=== PATIENT | male | born 1945 | race Caucasian/White ===

== ENCOUNTER → 2016-10-20 | Outpatient (CLI) | payer MEDICARE, OTHER ==
--- NOTE | 2016-10-20 12:00 | CT ---
EXAMINATION TYPE: CT ChestAbdPelvis w con DATE OF EXAM: 10/20/2016 11:47 AM COMPARISON: 04/05/2016 HISTORY: lymphoma CT DLP: 1140.8 mGycm CONTRAST: CT scan of the chest, abdomen and pelvis is performed with Oral Contrast and with IV Contrast, patien t injected with 100 ml mL of Omnipaque 300. CT Chest: LUNGS: The lungs are clear and free of infiltrate or atelectasis. No pulmonary nodule or mass is det ected. No pleural effusion or CT evidence of interstitial lung disease. MEDIASTINUM: Thoracic aorta is of normal caliber. The heart is not enlarged. No evidence for media stinal mass or adenopathy. HILAR STRUCTURES: No evidence for mass. No hilar adenopathy is appreciated. OTHER: No visualized axillary or supraclavicular adenopathy. CONTRAST CT ABDOMEN AND PELVIS FINDINGS: LIVER/GB: No space occupying hepatic lesion. Biliary tree is of normal caliber. Evidence of hepat ic steatosis. Cholecystectomy clips are in place. PANCREAS: No inflammation. No distinct mass. SPLEEN: No splenic enlargement. No lesion seen. ADRENALS: No nodule. No thickening. KIDNEYS/BLADDER: No hydronephrosis. No nephrolithiasis. No disctinct renal mass. BOWEL: Small sliding-type hiatal hernia detected. Normal appendix. Normal bowel caliber. No inflamm ation. GENITAL ORGANS: Mild prostate enlargement. LYMPH NODES: No greater than 1cm abdominal or pelvic lymph nodes are appreciated. AORTA: No significant abnormality. OSSEOUS STRUCTURES: No significant abnormality is seen. OTHER: No significant additional abnormality is seen. IMPRESSION: 1. No evidence for adenopathy within the chest abdomen or pelvis. 2. Hepatic steatosis. 3. Small sliding-type hiatal hernia.
== END | disposition home or self-care (01) ==
LOC: RADCTMAIN 11:14
PROVIDERS: ATTEND Internal Medicine Hematology & Oncology
DX: C85.90 Non-Hodgkin lymphoma, unspecified, unspecified site (principal); K76.0 Fatty (change of) liver, not elsewhere classified; K44.9 Diaphragmatic hernia without obstruction or gangrene
CPT/HCPCS: 71260; 74177; Q9967

== ENCOUNTER → 2016-11-24 | Outpatient (CLI) | payer MEDICARE, OTHER ==
--- NOTE | 2016-11-24 10:33 | ECHOS ---
DATE OF SERVICE: 11/24/2016 AGE: 71Y SEX: M HT: 59 WT: 195 lbs. Protocol Luke: X Others: Stress Echo Stage: III Dur. of Exercise: 8 minutes *Heart Rate Blood Pressure *Rest: 72 Rest: 160/72 * *Max. Achieved: 125 Maximum BP: 213/56 85% PMHR: 127 100% PMHR: 149 *METS: 9 INDICATIONS: Coronary artery disease. MEDICATIONS: Ziac, Verapamil, lisinopril, Flomax. Baseline EKG shows sinus rhythm, normal axis, normal intervals. Patient exercised on Luke protocol for a total of 8 minutes, achieving 9 METs, 84% of predicted maximal heart rate without chest pain or diagnostic ST segment depression. Baseline echo shows normal left ventricular size, wall motion and systolic function. Postexercise, there is normal hyperdynamic response of all segments of myocardium noted. CONCLUSION: 1. Good exercise tolerance. 2. Negative stress test by EKG criteria. 3. Negative stress echo.
== END | disposition home or self-care (01) ==
LOC: RADNMMAIN 09:16
PROVIDERS: ATTEND Internal Medicine Geriatric Medicine
DX: I25.10 Atherosclerotic heart disease of native coronary artery without angina pectoris (principal)
CPT/HCPCS: 93017; 93350

== ENCOUNTER → 2017-05-08 | Outpatient (CLI) | payer MEDICARE, OTHER ==
[2017-05-08 09:44] LABS: Blood Urea Nitrogen 14 mg/dL (9-20); Non-African American GFR(MDRD) >60 (>60 ml/min/1.73 sqM)
--- NOTE | 2017-05-08 12:52 | CT ---
EXAMINATION TYPE: CT ChestAbdPelvis w con DATE OF EXAM: 05/08/2017 INDICATION: Lymphoma COMPARISON: 10/20/2016 CT DLP: 2014 mGycm CONTRAST: Performed with Oral Contrast and with IV Contrast, patient injected with 100 ml mL of Omnipaque 300. TECHNIQUE: Axial images at 5 mm thick sections. Reconstructed images in the coronal plane. Delayed images through the kidneys. FINDINGS: CT CHEST: Portion of the thyroid visualized is normal. No suspicious lung nodules or focal infiltrates are present. No enlarged mediastinal or hilar adenopathy is evident. The ascending aorta diameter at the level of the main pulmonary artery is 3.4 cm. The main pulmonary artery diameter at the bifurcation is 2.4 cm. Coronary artery calcification is noted. Small hiatal hernia may be present. CT ABDOMEN: Liver: Normal Spleen: Normal Pancreas: Normal Adrenal glands: The adrenal glands are normal. Gallbladder: Surgically absent. Kidneys: No masses are evident. No hydronephrosis is present. No cysts are present. Delayed images were obtained through the kidneys, which remain unremarkable. Aorta: Vascular calcification is within the aorta. Couple of shotty lymph nodes are adjacent to the proximal abdominal aorta. Inferior vena cava: Normal. CT PELVIS: Loops of bowel within the abdomen and pelvis are normal. There are loops of bowel which are incom pletely distended or lack oral contrast limiting their evaluation. Appendix: Normal as visualized. Urinary bladder: Normal. Genitourinary structures: Prostate is prominent. Osseous structures: Degenerative disc changes are present L5-S1. No suspicious lytic or sclerotic les ions are evident. IMPRESSIONS: 1. No suspicious lymphadenopathy is evident. There are a few scattered small lymph nodes present.
== END | disposition home or self-care (01) ==
LOC: RADCTMAIN 08:54
PROVIDERS: ATTEND Internal Medicine Hematology & Oncology
DX: C85.98 Non-Hodgkin lymphoma, unspecified, lymph nodes of multiple sites (principal); R59.0 Localized enlarged lymph nodes
CPT/HCPCS: 82565; 84520; 71260; 74177; Q9967

== ENCOUNTER → 2017-10-29 | Outpatient (CLI) | payer MEDICARE ==
[2017-10-29 13:01] LABS: Blood Urea Nitrogen 18 mg/dL (9-20)
--- NOTE | 2017-10-29 21:47 | CT ---
EXAMINATION TYPE: CT ChestAbdPelvis w con DATE OF EXAM: 10/29/2017 INDICATION: Follow-up lymphoma. COMPARISON: 05/08/2017 CT DLP: 1894 mGycm CONTRAST: Performed with Oral Contrast and with IV Contrast, patient injected with 100 mL of Omnipaque 350. TECHNIQUE: Axial images at 5 mm thick sections. Reconstructed images in the coronal plane. Delayed images through the kidneys. FINDINGS: CT CHEST: Portion of the thyroid visualized is normal. Small area of pneumonitis in the anterior medial right middle lobe, this was present previously. No enlarged mediastinal or hilar adenopathy is evident. Couple small shotty lymph nodes are in the pr etracheal space. Axillary regions are normal. Supraclavicular regions appear within normal limits. The ascending aorta diameter at the level of the main pulmonary artery is 3.2 cm. The main pulmonary artery diameter at the bifurcation is 2.[address] ABDOMEN: Liver: Normal Spleen: Normal a small splenule is anterior to the spleen Pancreas: Normal Adrenal glands: The adrenal glands are normal. Gallbladder: Surgically absent Kidneys: No masses are evident. No hydronephrosis is present. No cysts are present. Delayed images were obtained through the kidneys, which remain unremarkable. There is a retrocaval right renal mitzy ry Aorta: Vascular calcification is within the aorta. No suspicious periaortic adenopathy is evident. N o retrocaval adenopathy is evident. Inferior vena cava: Normal. CT PELVIS: No suspicious inguinal or pelvic adenopathy is evident. Loops of bowel within the abdomen and pelvis are normal. There are loops of bowel which are incom pletely distended or lack oral contrast limiting their evaluation. Appendix: Normal as visualized. Urinary bladder: Normal. Genitourinary structures: Prostate is prominent. Osseous structures: No suspicious lytic or sclerotic lesions. Degenerative disc changes are within th e lumbar spine. Some facet changes are present. IMPRESSIONS: 1. No suspicious enlarged adenopathy within the chest abdomen or pelvis to suggest metastatic or recu rrent lymphoma.
== END | disposition home or self-care (01) ==
LOC: RADCTMAIN 12:06
PROVIDERS: ATTEND Internal Medicine Hematology & Oncology
DX: C85.98 Non-Hodgkin lymphoma, unspecified, lymph nodes of multiple sites (principal)
CPT/HCPCS: 82565; 84520; 71260; 74177; 36415; Q9967

== ENCOUNTER → 2018-04-30 | Outpatient (CLI) | payer MEDICARE ==
[2018-04-30 12:05] LABS: Blood Urea Nitrogen 22 mg/dL (9-20)
--- NOTE | 2018-04-30 13:30 | CT ---
EXAMINATION TYPE: CT ChestAbdPelvis w con DATE OF EXAM: 04/30/2018 COMPARISON: CT chest abdomen pelvis October 29, 2017 and older studies. HISTORY: Follow up Lymphoma CT DLP: 1484 mGycm. Automated Exposure Control for Dose Reduction was Utilized. CONTRAST: CT scan of the thorax, abdomen and pelvis is performed with oral and with IV Contrast, patient inject ed with 100 mL of Isovue 300. FINDINGS: LUNGS: Focal scarring anteriorly medially right midlung axial image 28 is redemonstrated. No new edwar picious parenchymal nodule or mass is present. There is no pleural effusion or pneumothorax seen bila terally. The tracheobronchial tree is patent. MEDIASTINUM: There are no new greater than 1 cm hilar or mediastinal lymph nodes. Trace pericardial e ffusion is seen anteriorly axial image 43 not significantly changed from prior. Cardiomegaly is rede monstrated. Coronary artery calcification and/or stents are again seen. OTHER: No additional significant abnormality is seen. LIVER/GB: Cholecystectomy clips are redemonstrated. PANCREAS: No significant abnormality is seen. SPLEEN: A few tiny splenule surrounding spleen are redemonstrated. Spleen remains normal in size jairo lar to most recent CT. ADRENALS: No significant abnormality is seen. KIDNEYS: No significant abnormality is seen. BOWEL: The oral contrast does not reach terminal ileal level. No suspicious small or large bowel dila tation is noted. GENITAL ORGANS: Heterogeneous enlarged prostate gland bulging on bladder base consistent with BPH is noted. LYMPH NODES: No greater than 1cm abdominal or pelvic lymph nodes are appreciated. Slightly prominent but subcentimeter upper to mid abdominal posterior lymph nodes are stable OSSEOUS STRUCTURES: Multilevel spurring in the thoracolumbar spine is again seen. Disc space narrowin g lumbosacral junction is redemonstrated. Prominent spur effacing anterior thecal sac L2-L3 and L5-S1 levels is again seen. OTHER: Surgical clips right groin region are redemonstrated. Mild to moderate plaque in the abdominal aorta extending into branch vessels is again seen. IMPRESSION: No new suspicious adenopathy is identified above or below diaphragm to suggest lymphoma r ecurrence as originally diagnosed beginning of 2013.
== END | disposition home or self-care (01) ==
LOC: RADCTMAIN 11:28
PROVIDERS: ATTEND Internal Medicine Hematology & Oncology
DX: C85.98 Non-Hodgkin lymphoma, unspecified, lymph nodes of multiple sites (principal)
CPT/HCPCS: 82565; 84520; 71260; 74177; 36415; Q9967

== ENCOUNTER → 2018-06-19 | Outpatient (CLI) | payer MEDICARE ==
--- NOTE | 2018-06-19 16:14 | US ---
EXAMINATION TYPE: US carotid duplex BILAT DATE OF EXAM: 06/19/2018 COMPARISON: NONE CLINICAL HISTORY: I65.23. HTN controlled with meds, high cholesterol controlled with meds. No hx of TIA or stroke. EXAM MEASUREMENTS: RIGHT: Peak Systolic Velocity (PSV) cm/sec ----- Right CCA: 86.4 ----- Right ICA: 84.2 ----- Right ECA: 105.6 ICA/CCA ratio: 1.0 RIGHT: End Diastole cm/sec ----- Right CCA: 12.8 ----- Right ICA: 18.2 ----- Right ECA: 11.1 LEFT: Peak Systolic Velocity (PSV) cm/sec ----- Left CCA: 87.5 ----- Left ICA: 82.0 ----- Left ECA: 121.1 ICA/CCA ratio: 0.9 LEFT: End Diastole cm/sec ----- Left CCA: 17.1 ----- Left ICA: 25.9 ----- Left ECA: 15.0 VERTEBRALS (direction of flow): Right Vertebral: Antegrade Left Vertebral: Antegrade Rhythm: Normal Bilateral wall thickening. Plaque in bilateral bulbs. No elevated velocities or significant stenosi s. IMPRESSION: 1. Intimal thickening with some mild plaquing. Significant flow-limiting stenosis is not evident by v elociaman. Criteria for Assigning % of Stenosis / Diameter reduction (Estimation based on the indirect measurements of the internal carotid artery velocities (ICA PSV). 1. Normal (no stenosis)=ICA PSV < 125 cm/s: ratio < 2.0: ICA EDV<40 cm/s. 2. Less than 50% stenosis=ICA PSV < 125 cm/s: ratio < 2.0: ICA EDV<40 cm/s. 3. 50 to 69% stenosis=ICA PSV of 125 to 230 cm/s: ration 2.0 ? 4.0: ICA EDV 40-100 cm/s. 4. Greater than 70% stenosis to near occlusion= ICA PSV > 230 cm/s: ratio > 4.0: ICA EDV > 100 cm/s. 5. Near occlusion= ICA PSV velocities may be low or undetectable: variable ratio and ICA EDV. 6. Total occlusion=unable to detect flow.
--- NOTE | 2018-06-19 17:31 | ECHOF ---
Referral Reason:I51.7 Heart Hypertrophy; I65.23 Occlusion/stenosis MEASUREMENTS -------- HEIGHT: 175.3 cm WEIGHT: 81.6 kg BP: RVIDd: 3.7 cm (< 3.3) IVSd: 1.3 cm (0.6 - 1.1) LVIDd: 3.7 cm (3.9 - 5.3) LVPWd: 1.2 cm (0.6 - 1.1) IVSs: 1.5 cm LVIDs: 2.4 cm LVPWs: 1.5 cm LAESV Index (A-L): 17.08 ml/m Ao Diam: 2.9 cm (2.0 - 3.7) AV Cusp: 1.6 cm (1.5 - 2.6) LA Diam: 2.7 cm (2.7 - 3.8) MV EXCURSION: 12.495 mm (> 18.000) MV EF SLOPE: 26 mm/s (70 - 150) EPSS: 0.7 cm MV E Carlos: 0.58 m/s MV DecT: 319 ms MV A Carlos: 0.69 m/s MV E/A Ratio: 0.84 RAP: 5.00 mmHg RVSP: 19.22 mmHg FINDINGS -------- Sinus rhythm. This was a technically adequate study. The left ventricular size is normal. There is mild concentric left ventricular hypertrophy. Overa ll left ventricular systolic function is normal with, an EF between 55 - 60 %. The right ventricle is normal in size and function. Normal LA size by volume 22+/-6 ml/m2. The right atrium is normal in size. There is mild aortic valve sclerosis. There is no evidence of aortic regurgitation. There is no e vidence of aortic stenosis. Mild mitral annular calcification present. Mild mitral regurgitation is present. Trace tricuspid regurgitation present. Right ventricular systolic pressure is normal at < 35 mmHg. There is no evidence of pulmonary hypertension. Trace/mild (physiologic) pulmonic regurgitation. The aortic root size is normal. Normal inferior vena cava with normal inspiratory collapse consistent with estimated right atrial pre ssure of 5 mmHg. There is no pericardial effusion. CONCLUSIONS -------- 1. Sinus rhythm. 2. This was a technically adequate study. 3. The left ventricular size is normal. 4. There is mild concentric left ventricular hypertrophy. 5. Overall left ventricular systolic function is normal with, an EF between 55 - 60 %. 6. Normal LA size by volume 22+/-6 ml/m2. 7. There is mild aortic valve sclerosis. 8. Mild mitral annular calcification present. 9. Mild mitral regurgitation is present. 10. Trace tricuspid regurgitation present. 11. Right ventricular systolic pressure is normal at < 35 mmHg. 12. Trace/mild (physiologic) pulmonic regurgitation. 13. The aortic root size is normal. 14. There is no pericardial effusion. CLINICAL DIRECTOR: Nakul Reyes RDCS
== END | disposition home or self-care (01) ==
LOC: RADECHMAIN 14:50
PROVIDERS: ATTEND Internal Medicine Geriatric Medicine
DX: I08.0 Rheumatic disorders of both mitral and aortic valves (principal); I65.23 Occlusion and stenosis of bilateral carotid arteries
CPT/HCPCS: 93306; 93880

== ENCOUNTER → 2018-10-29 | Outpatient (CLI) | payer MEDICARE ==
[2018-10-29 08:29] LABS: Blood Urea Nitrogen 18 mg/dL (9-20)
--- NOTE | 2018-10-29 11:05 | CT ---
EXAMINATION TYPE: CT ChestAbdPelvis w con DATE OF EXAM: 10/29/2018 COMPARISON: CT chest abdomen and pelvis April 30, 2018 and older studies back through 2013. HISTORY: Non-Hodgkins lymphoma CT DLP: 1620 mGycm. Automated Exposure Control for Dose Reduction was Utilized. CONTRAST: CT scan of the thorax, abdomen and pelvis is performed with IV Contrast, patient injected with 100 mL of Isovue 300. FINDINGS: LUNGS: Focal linear scarring right midlung anteriorly axial image 29 is redemonstrated. No new suspi cious consolidation or groundglass opacity is seen. No new suspicious pulmonary nodules or masses are identified. There is no pleural effusion or pneumothorax seen. The tracheobronchial tree is patent. MEDIASTINUM: There are no greater than 1 cm hilar or mediastinal lymph nodes on current study. Tiny p ericardial effusion is stable anterior inferior aspect near axial image 46. No cardiomegaly is prese nt. Coronary artery calcification and/or probable stents are redemonstrated . No left-sided supraclav icular adenopathy is present. OTHER: No suspicious new axillary adenopathy is seen. LIVER/GB: Cholecystectomy clips are redemonstrated. PANCREAS: No significant abnormality is seen. SPLEEN: Spleen remains normal in size significantly improved from initial study. Tiny splenule anteri or to the spleen is redemonstrated ADRENALS: No significant abnormality is seen. KIDNEYS: Bladder wall remains mildly thickened, presumed outlet obstruction related to BPH. BOWEL: Oral contrast reaches level of the rectum. There is no suspicious small or large bowel dilatat ion. Moderate to severe multilevel spurring in the thoracolumbar spine is present. There is moderate to severe disc space narrowing with vacuum disc phenomenon L5-S1 level. Posterior spurring is redemon strated at this level effacing anterior thecal sac. GENITAL ORGANS: Prostate gland is enlarged in size bulging on bladder base consistent with underlying BPH. LYMPH NODES: No greater than 1cm abdominal or pelvic lymph nodes are appreciated on current study wit h particular attention to the upper to midabdomen through the mesentery and retroperitoneum at area o f original adenopathy. OSSEOUS STRUCTURES: No significant abnormality is seen. OTHER: Mild calcified plaque of aorta extends into branch vessels. Surgical clips right groin region are redemonstrated. IMPRESSION: No recurrent adenopathy or splenomegaly identified. No significant change from most recen t CT.
== END | disposition home or self-care (01) ==
LOC: RADCTMAIN 07:50
PROVIDERS: ATTEND Internal Medicine Hematology & Oncology
DX: Z03.89 Encounter for observation for other suspected diseases and conditions ruled out (principal); C85.98 Non-Hodgkin lymphoma, unspecified, lymph nodes of multiple sites
CPT/HCPCS: 82565; 84520; 71260; 74177; 36415; Q9967

== ENCOUNTER → 2019-04-29 | Outpatient (CLI) | payer MEDICARE ==
[2019-04-29 16:15] LABS: African American GFR (CKD) >90 (>60 ml/min/1.73 sqM); Blood Urea Nitrogen 16 mg/dL (9-20); Non-African American GFR(CKD) 82 (>60 ml/min/1.73 sqM)
--- NOTE | 2019-04-30 08:46 | CT ---
EXAMINATION TYPE: CT ChestAbdPelvis w con DATE OF EXAM: 04/29/2019 COMPARISON: 10/29/2018 HISTORY: hx lymphoma CT DLP: 1131.60 mGycm Automated exposure control for dose reduction was used. CONTRAST: CT scan of the chest, abdomen and pelvis is performed with Oral Contrast and with IV Contrast, patien t injected with 100 mL of Isovue 300. FINDINGS: LUNGS: Redemonstration of focal area of scarring in the medial mid right lung anteriorly. Otherwise, the lungs are grossly clear, there is no concerning parenchymal mass or nodule identified. There is no pleural effusion or pneumothorax seen. The tracheobronchial tree is patent. MEDIASTINUM: There are no greater than 1 cm hilar or mediastinal lymph nodes. No pericardial effusi on is seen. OTHER: No supraclavicular or axillary adenopathy. LIVER/GB: No significant abnormality is appreciated. Gallbladder surgically absent. PANCREAS: No significant abnormality is seen. SPLEEN: No significant abnormality is seen. ADRENALS: No significant abnormality is seen. KIDNEYS: No significant abnormality is seen. BOWEL: No significant abnormality is seen. REPRODUCTIVE ORGANS: Redemonstration of enlarged prostate gland bulging on the base of the bladder. LYMPH NODES: No greater than 1 cm abdominal or pelvic lymph nodes are appreciated. OSSEOUS STRUCTURES: Multilevel thoracolumbar spondylosis most severe at L5-S1 with vacuum disc phenom enon. No evidence of osteolytic or osteoblastic lesion. Degenerative changes of the bilateral hips. OTHER: Redemonstration of surgical clips in the right groin. IMPRESSION: No recurrent adenopathy or splenomegaly identified. No significant change from prior CT d ated 10/29/2018.
== END | disposition home or self-care (01) ==
LOC: RADCTMAIN 14:59
PROVIDERS: ATTEND Internal Medicine Hematology & Oncology
DX: C83.98 Non-follicular (diffuse) lymphoma, unspecified, lymph nodes of multiple sites (principal)
CPT/HCPCS: 82565; 84520; 71260; 74177; 36415; Q9967

== ENCOUNTER → 2019-11-19 | Outpatient (CLI) | payer MEDICARE ==
--- NOTE | 2019-11-19 15:06 | CT ---
EXAMINATION TYPE: CT ChestAbdPelvis w con DATE OF EXAM: 11/19/2019 COMPARISON: Most recent CT April 29, 2019 and older CTs through 2013 HISTORY: Follow up Nonhodgkins lymphoma. Also complains of right flank pain. CT DLP: 1249.5 mGycm. Automated Exposure Control for Dose Reduction was Utilized. CONTRAST: CT scan of the thorax, abdomen and pelvis is performed with oral and with IV Contrast, patient inject ed with 100 mL of Isovue M300. FINDINGS: LUNGS: Small area of linear scarring anterior right midlung image 29 redemonstrated. Lungs otherwise remain clear. No suspicious new nodules or masses. There is no pleural effusion or pneumothorax seen . The tracheobronchial tree is patent. MEDIASTINUM: There are no new greater than 1 cm hilar or mediastinal lymph nodes. Trace pericardial e ffusion is stable anterior inferior aspect axial image 48. Heart size stable and mildly enlarged. Co ronary artery calcification again seen which is noted marked underlying coronary artery disease. Ther e is suspected stent in the RCA distribution mid to distal aspect. LIVER/GB: Cholecystectomy clips are redemonstrated. PANCREAS: No significant abnormality is seen. SPLEEN: Small splenule anterior to the spleen stable.. ADRENALS: No significant abnormality is seen. KIDNEYS: Some cortical thinning in both kidneys. Symmetric cortical medullary uptake and excretion wi thout concerning mass or hydronephrosis seen bilaterally. BOWEL: Oral contrast reaches rectum. No suspicious small enlarged bowel dilatation. GENITAL ORGANS: Heterogeneous enlarged prostate gland consistent with BPH. Some posterior calcificati on. Right pelvic phlebolith. LYMPH NODES: No new greater than 1cm abdominal or pelvic lymph nodes are appreciated. OSSEOUS STRUCTURES: Moderate multilevel spurring in the spine. Moderate to severe disc space narrowin g and vacuum disc phenomenon lumbosacral junction. Facet arthropathy lower lumbar levels. S-shaped sc oliosis. Mild/moderate narrowing and spurring of both hip joints redemonstrated.. OTHER: Surgical clips right groin region. Mild calcified plaque aorta extends into branch vessels IMPRESSION: No recurrent abnormal adenopathy above or below the diaphragm to suggest active lymphoma recurrence. No significant change from most recent CT.
== END | disposition home or self-care (01) ==
LOC: RADCTMAIN 12:23
PROVIDERS: ATTEND Internal Medicine Hematology & Oncology
DX: C85.98 Non-Hodgkin lymphoma, unspecified, lymph nodes of multiple sites (principal)
CPT/HCPCS: 82565; 84520; 71260; 74177; 36415; Q9967 ×2

== ENCOUNTER → 2020-06-02 | Outpatient (CLI) | payer MEDICARE ==
[2020-06-02 11:23] LABS: African American GFR (CKD) >90 (>60 ml/min/1.73 sqM); Blood Urea Nitrogen 20 mg/dL (9-20); Non-African American GFR(CKD) 78 (>60 ml/min/1.73 sqM)
--- NOTE | 2020-06-02 13:05 | CT ---
EXAMINATION TYPE: CT ChestAbdPelvis w con DATE OF EXAM: 06/02/2020 COMPARISON: Most recent CT November 19, 2019 and older studies. HISTORY: Non HOdgkins Lymphoma progress study. Originally diagnosed with retroperitoneal adenopathy [address] DLP: 1188.90 mGycm. Automated Exposure Control for Dose Reduction was Utilized. CONTRAST: CT scan of the thorax, abdomen and pelvis is performed with IV Contrast, patient injected with 100 ml mL of Isovue 300. FINDINGS: LUNGS: Focal area of linear scarring anteromedial right mid lung axial image 33 is redemonstrated. Ne w 3 mm posterior right basilar nodule image 46 near site of prior larger nodule 2014 study. Stable 8 mm nodule or nodular thickening posterior right lung base is 59 from prior study image 57. There is n o pleural effusion or pneumothorax seen. The tracheobronchial tree is patent. MEDIASTINUM: There are no greater than 1 cm hilar or mediastinal lymph nodes. Tiny pericardial effusi on anterior-inferior aspect is stable. Heart size upper limits of normal. Coronary artery calcificat ion and/or stents are redemonstrated. LIVER/GB: Liver remains heterogeneously hypodense consistent with diffuse fatty infiltration. Cholecy stectomy clips are redemonstrated PANCREAS: No significant abnormality is seen. SPLEEN: Small anterior splenule redemonstrated. ADRENALS: No significant abnormality is seen. KIDNEYS: No significant abnormality is seen. BOWEL: Oral contrast reaches mid transverse colon. No suspicious small or large bowel dilatation. GENITAL ORGANS: Enlarged prostate gland consistent with BPH. Posterior calcifications redemonstrated. Prominent right pelvic phlebolith again seen. LYMPH NODES: No new greater than 1cm abdominal or pelvic lymph nodes are appreciated. OSSEOUS STRUCTURES: Moderate multilevel spurring in the visualized spine. [id number] disc spa ce narrowing with vacuum disc phenomenon lumbosacral junction. Facet arthropathy lower lumbar levels. OTHER: Surgical clips right groin region redemonstrated. No new greater than 1 cm groin adenopathy. M ild calcified plaque of the aorta extends into branch vessels. IMPRESSION: No new or recurrent abnormal adenopathy above or below diaphragm to suggest active lympho ma recurrence.
== END | disposition home or self-care (01) ==
LOC: RADCTMAIN 10:20
PROVIDERS: ATTEND Internal Medicine Hematology & Oncology
DX: C85.98 Non-Hodgkin lymphoma, unspecified, lymph nodes of multiple sites (principal)
CPT/HCPCS: 82565; 84520; 71260; 74177; 36415; Q9967

== ENCOUNTER → 2020-11-24 | Outpatient (CLI) | payer MEDICARE ==
[2020-11-24 10:29] LABS: African American GFR (CKD) >90 (>60 ml/min/1.73 sqM); Blood Urea Nitrogen 17 mg/dL (9-20); Non-African American GFR(CKD) 86 (>60 ml/min/1.73 sqM)
--- NOTE | 2020-11-24 11:44 | CT ---
EXAMINATION TYPE: CT ChestAbdPelvis w con DATE OF EXAM: 11/24/2020 COMPARISON: Prior CT June 02, 2020 and older studies. HISTORY: Non-Hodgkins lymphoma, follow up. Initially diagnosed with retroperitoneal adenopathy 2012. CT DLP: 1042.8 mGycm. Automated Exposure Control for Dose Reduction was Utilized. CONTRAST: CT scan of the thorax, abdomen and pelvis is performed with oral and with IV Contrast, patient inject ed with 100 mL of Isovue 300. FINDINGS: LUNGS: Focal area of linear scarring anteromedial right mid lung axial images 30-32 is redemonstrated and stable. Slightly more prominent 4 x 3 mm posterior right basilar nodule axial image 44 near site of prior larger nodule 2014 study should be closely followed. More prominent 16 x 9 mm nodule or nod ular thickening posterior right lung base axial image 57 is concerning versus most recent CT. There i s no pleural effusion or pneumothorax seen. The tracheobronchial tree is patent. MEDIASTINUM: There are no greater than 1 cm hilar or mediastinal lymph nodes. Tiny pericardial effusi on anterior-inferior aspect is stable. Heart size upper limits of normal. Coronary artery calcificat ion and/or stents are redemonstrated. LIVER/GB: Liver remains heterogeneously hypodense consistent with diffuse fatty infiltration. Cholecy stectomy clips are redemonstrated PANCREAS: No significant abnormality is seen. SPLEEN: Small anterior splenule redemonstrated on axial image 57. Curvilinear calcification superior anterior aspect image 53 redemonstrated. Spleen size stable and within normal limits. ADRENALS: No significant abnormality is seen. KIDNEYS: Symmetric cortical medullary uptake and excretion without hydronephrosis seen bilaterally. BOWEL: Oral contrast reaches the rectum on current study. No suspicious small or large bowel dilatati on. Abdominal normal-appearing appendix. GENITAL ORGANS: Enlarged prostate gland consistent with BPH is redemonstrated. Right Posterior calcif ications redemonstrated. Prominent right pelvic phlebolith again seen axial image 115. LYMPH NODES: No recurrent or new greater than 1cm abdominal or pelvic lymph nodes are appreciated wit h particular attention to the retroperitoneum and upper abdominal mesentery. OSSEOUS STRUCTURES: Moderate multilevel spurring in the visualized spine. [id number] disc spa ce narrowing with vacuum disc phenomenon lumbosacral junction. Multilevel facet arthropathy mid to lo wer lumbar levels. OTHER: Surgical clips right groin region redemonstrated. No new greater than 1 cm groin adenopathy. M ild calcified plaque of the aorta extends into branch vessels. IMPRESSION: No new or recurrent abnormal adenopathy above or below diaphragm to suggest active lympho ma recurrence. Small right-sided lower lobe nodules are slowly enlarging in size as detailed above. C onsider PET/CT to further evaluate.
== END | disposition home or self-care (01) ==
LOC: RADCTMAIN 09:05
PROVIDERS: ATTEND Internal Medicine Hematology & Oncology
DX: R91.8 Other nonspecific abnormal finding of lung field (principal); C85.98 Non-Hodgkin lymphoma, unspecified, lymph nodes of multiple sites
CPT/HCPCS: 82565; 84520; 71260; 74177; 36415; Q9967 ×2

== ENCOUNTER → 2020-12-24 | Outpatient (CLI) | payer MEDICARE ==
--- NOTE | 2020-12-27 05:25 | PE ---
EXAMINATION TYPE: PET CT fusion skull to thigh DATE OF EXAM: 12/24/2020 COMPARISON: Most recent CT November 24, 2020 and older studies. HISTORY: Lymphoma originally diagnosed in 2014 in stomach per patient. Completed chemotherapy 2014. A bnormal CT, right lung nodule. TECHNIQUE: Following the intravenous administration of 11.01 mCi of F-18 FDG, whole body images are performed from the skull base to the midthigh. Images are reviewed on the computer in the coronal, a xial, and sagittal planes. Reconstructed rotating images are created on independent workstation and reviewed on the computer. A localization and attenuation correction CT is performed in conjunction with the PET scan. Blood glucose level equals 127 SCAN: Initial Scan FINDINGS: Mean SUV mediastinum: 0.95 Mean SUV liver: 2.54. SKULL BASE AND NECK: No areas of abnormal hypermetabolic uptake. CHEST, MEDIASTINUM, AND HILAR REGION: Persistent posterior peripheral 18 x 7 mm soft tissue nodule ax ial image 114 is ametabolic. No areas of abnormal hypermetabolic uptake. ABDOMEN AND PELVIS: Normal excretion. Nonspecific bowel uptake. Blending with bowel loops is 2.5 x 1. 8 cm left midabdominal hypermetabolic peritoneal nodule possible lymph node axial image 154 with max SUV 8.72. aNo additional areas of abnormal hypermetabolic uptake. OSSEOUS STRUCTURES: No areas of abnormal metabolic uptake. OTHER CT: Small degree of subareolar gynecomastia. Coronary artery calcification and/or stents. Cardi omegaly with tiny pericardial effusion. Cholecystectomy clips. Cortical thinning and volume loss in both kidneys. Small anterior splenule. En larged prostate consistent with BPH. Mild bladder wall thickening consistent with outlet obstruction from BPH. Scattered pelvic phleboliths. Facet arthropathy lower lumbar spine. IMPRESSION: Stable size posterior right lower lobe nodule or nodular consolidation is noted ametaboli c. Consider follow-up CT and/or PET/CT in 6-12 months time to reassess. Of more concern in retrospect ria left mid abdominal Hypermetabolic soft tissue nodule blending with nonopacified bowel worrisome for peritoneal recurrenc e and/or abnormal adenopathy.
== END | disposition home or self-care (01) ==
LOC: RADPETMAIN 07:33
PROVIDERS: ATTEND Internal Medicine Hematology & Oncology
DX: C85.90 Non-Hodgkin lymphoma, unspecified, unspecified site (principal); R91.1 Solitary pulmonary nodule
CPT/HCPCS: 78815; A9552

== ENCOUNTER → 2021-06-27 | Outpatient (CLI) | payer MEDICARE ==
--- NOTE | 2021-06-27 14:33 | CT ---
EXAMINATION TYPE: CT ChestAbdPelvis w con DATE OF EXAM: 06/27/2021 INDICATION: Lymphoma COMPARISON: 11/24/2020 CT DLP: 1162.6 mGycm CONTRAST: Performed with Oral Contrast and with IV Contrast, patient injected with 100 mL of Isovue 300. TECHNIQUE: Axial images at 5 mm thick sections. Reconstructed images in the coronal plane. Delayed images through the kidneys. FINDINGS: CT CHEST: Portion of the thyroid visualized is normal. There is normal density in the posterior medial right lung base measuring 1.6 x 2.6 cm. This is enlar ged from the previous 1.6 x 0.9 cm. No enlarged mediastinal or hilar adenopathy is evident. The ascending aorta diameter at the level of the main pulmonary artery is 3.2 cm. The main pulmonary artery diameter at the bifurcation is 2.[address] ABDOMEN: Soft tissue densities in the left mid abdomen measuring 8.2 x 5.5 cm. This has irregular ill-defined margins and is just anterior to the descending colon. There is a rounded mass within the posterior lateral right mid abdomen measuring 3.4 x 4.5 cm. These have increased in size over the int erval. Suspicious enlarged retrocrural periaortic or retrocaval adenopathy is not identified. No portal genie opathy is evident. Small splenule. The present anterior. Liver: Normal Spleen: Normal Pancreas: Normal Adrenal glands: The adrenal glands are normal. Gallbladder: Normal Kidneys: No masses are evident. No hydronephrosis is present. No cysts are present. Delayed images were obtained through the kidneys, which remain unremarkable. Aorta: Vascular calcification is within the aorta. Inferior vena cava: Normal. CT PELVIS: Loops of bowel within the abdomen and pelvis are normal. There are loops of bowel which are incom pletely distended or lack oral contrast limiting their evaluation. Appendix: Not identified. Suspicious inflammatory change or dilated tubular structures are not eviden t. Urinary bladder: Normal. Genitourinary structures: Prostate is prominent. Osseous structures: No suspicious lytic or sclerotic lesions. IMPRESSIONS: 1. Findings suggestive for recurrence within the left midabdomen and posterior lateral right abdomen. These areas of enlarged over the interval. Reevaluation with PET/CT could be performed
== END | disposition home or self-care (01) ==
LOC: RADCTMAIN 10:33
PROVIDERS: ATTEND Internal Medicine Hematology & Oncology
DX: C85.90 Non-Hodgkin lymphoma, unspecified, unspecified site (principal); R19.00 Intra-abdominal and pelvic swelling, mass and lump, unspecified site; J98.4 Other disorders of lung
CPT/HCPCS: 82565; 84520; 71260; 74177; 36415; Q9967 ×2

== ENCOUNTER 2021-07-18 09:05 | Day surgery (SDC) | payer MEDICARE ==
[2021-07-18 09:23] VITALS: RESP 16; TEMP 97.6
[2021-07-18 09:42] LABS: Mean Platelet Volume 7.7; Platelet Count 151 k/uL (150-450)
[2021-07-18 09:46] LABS: Prothrombin Time 10.3 sec (9.0-12.0)
[2021-07-18] MEDS ORDERED: HYDROmorphone 0.5 MG/0.5 ML SYRINGE IM STA (10:10)
--- NOTE | 2021-07-18 11:02 | CT ---
EXAMINATION TYPE: CT biopsy abdomen percutaneous DATE OF EXAM: 07/18/2021 COMPARISON: NONE HISTORY: Abdominal mass CT DLP: 1164mGycm The procedure was explained to the patient. The risks, complications, benefits, and alternatives wer e discussed and any questions were answered. Informed consent was obtained. Patient was placed supi ne on the CT table and prepped and draped in the usual sterile fashion. All elements of maximal barrier and sterile technique utilized. Utilizing CT guidance, an 18 gauge core biopsy needle access into the abdominal mass was achieved and a three 18 gauge core samples were obtained. The patient was stable throughout the procedure and re mained stable upon discharge. IMPRESSION: 1. Successful 18 gauge core biopsy of the requested abdominal mass.
[2021-07-18 15:56] VITALS: BP 130/62; PULSE 50
== END 2021-07-18 14:22 | disposition home or self-care (01) ==
LOC: RADPROMAIN 09:05
PROVIDERS: ATTEND Internal Medicine Hematology & Oncology
DX: C83.13 Mantle cell lymphoma, intra-abdominal lymph nodes (principal)
CPT/HCPCS: 36415; 49180; 77012; 85049; 85610; 88305; 88341; 88342

== ENCOUNTER 2021-08-02 09:10 | Day surgery (SDC) | payer MEDICARE ==
[~2021-08-02 09:10] MED LIST: HYDROmorphone 0.5 MG/0.5 ML SYRINGE IVP PRN
[2021-08-02] MEDS ORDERED: ALPRAZolam 0.25 MG TAB PO PRN (09:35)
[2021-08-02 09:51] VITALS: RESP 16; TEMP 98.4
[2021-08-02 09:52] LABS: Mean Platelet Volume 7.7; Platelet Count 171 k/uL (150-450)
[2021-08-02 09:58] LABS: INR 0.9 (<1.2); Prothrombin Time 10.1 sec (9.0-12.0)
[2021-08-02 10:19] VITALS: BP 131/68; PULSE 51
--- NOTE | 2021-08-02 12:01 | CT ---
EXAMINATION TYPE: CT discontinued procedure DATE OF EXAM: 08/02/2021 COMPARISON: CT scan 27 June 2021, PET/CT 12/24/2020 HISTORY: Lung nodule CT DLP: 238 mGycm Automated exposure control for dose reduction was used. FINDINGS: On prone scanning for preparation for patient's lung biopsy, patient underwent informed consent and e lected not to undergo lung biopsy this time. IMPRESSION: PROCEDURE IS DISCONTINUED BY THE PATIENT
== END 2021-08-02 11:10 | disposition home or self-care (01) ==
LOC: RADPROMAIN 09:10
PROVIDERS: ATTEND Internal Medicine Hematology & Oncology
DX: R91.1 Solitary pulmonary nodule (principal)
CPT/HCPCS: 36415; 76380; 85049; 85610

== ENCOUNTER → 2021-10-12 | Outpatient (CLI) | payer MEDICARE ==
--- NOTE | 2021-10-12 15:23 | CT ---
EXAMINATION TYPE: CT ChestAbdPelvis w con DATE OF EXAM: 10/12/2021 COMPARISON: Most recent CT June 27, 2021 and older CTs. Most recent PET/CT December 24, 2020 HISTORY: Lymphoma originally diagnosed in 2013 in stomach per patient. Completed chemotherapy 2014. R ecurrence in the abdomen 2020. CT DLP: 1531.37 mGycm. Automated Exposure Control for Dose Reduction was Utilized. CONTRAST: CT scan of the thorax, abdomen and pelvis is performed with oral and with IV Contrast, patient inject ed with 80 mL of Isovue 300. FINDINGS: LUNGS: The lungs are grossly clear, there is no concerning greater than 5 mm parenchymal mass or nodu le identified. Prior visualized posterior 18 x 7 mm right basilar nodule axial image 53 is not clearl y seen on this study. There is no pleural effusion or pneumothorax seen. The tracheobronchial tree is patent. MEDIASTINUM: There are no greater than 1 cm hilar or mediastinal lymph nodes. No cardiomegaly is se en. Stable tiny pericardial effusion. Three-vessel coronary artery calcification is redemonstrated. LIVER/GB: Cholecystectomy clips are redemonstrated. PANCREAS: No significant abnormality is seen. SPLEEN: No significant abnormality is seen. ADRENALS: No significant abnormality is seen. KIDNEYS: No significant abnormality is seen. BOWEL: Oral contrast reaches the level of the rectum. No suspicious small or large bowel dilatation i s seen GENITAL ORGANS: Enlarged prostate consistent with BPH redemonstrated. LYMPH NODES: Left lateral mid abdominal mass or neoplasm axial image 76 is diminished in size with pe rsistent lobulated contour measuring 2.3 x 1.4 cm axial image 76. No new greater than 1 cm intraperit maier masses or abdominal/pelvic adenopathy identified. Stable prominent but subcentimeter left peria ortic lymph node axial image 59. OSSEOUS STRUCTURES: Multilevel spurring of the thoracolumbar spine redemonstrated. OTHER: Surgical clips right groin region again seen. IMPRESSION: Partial positive treatment response as detailed above.
== END | disposition home or self-care (01) ==
LOC: RADCTMAIN 13:02
PROVIDERS: ATTEND Internal Medicine Hematology & Oncology
DX: C85.98 Non-Hodgkin lymphoma, unspecified, lymph nodes of multiple sites (principal); N40.0 Benign prostatic hyperplasia without lower urinary tract symptoms; I25.10 Atherosclerotic heart disease of native coronary artery without angina pectoris; I31.3 Pericardial effusion (noninflammatory); R91.8 Other nonspecific abnormal finding of lung field; Z90.49 Acquired absence of other specified parts of digestive tract
CPT/HCPCS: 82565; 84520; 71260; 74177; 36415; Q9967

== ENCOUNTER → 2021-10-21 | Outpatient (CLI) | payer MEDICARE ==
--- NOTE | 2021-10-22 06:28 | US ---
EXAMINATION TYPE: US carotid duplex BILAT DATE OF EXAM: 10/21/2021 COMPARISON: Carotid ultrasound June 19, 2018 CLINICAL HISTORY: R42 Dizziness. EXAM MEASUREMENTS: RIGHT: Peak Systolic Velocity (PSV) cm/sec ----- Right CCA: 78.1 ----- Right ICA: 88.4 ----- Right ECA: 133. ICA/CCA ratio: 1.12 RIGHT: End Diastole cm/sec ----- Right CCA: 14.9 ----- Right ICA: 24.5 ----- Right ECA: 16.1 LEFT: Peak Systolic Velocity (PSV) cm/sec ----- Left CCA: 86.3 ----- Left ICA: 75.5 ----- Left ECA: 98.6 ICA/CCA ratio: 0.87 LEFT: End Diastole cm/sec ----- Left CCA: 16.4 ----- Left ICA: 25.6 ----- Left ECA: 15.7 VERTEBRALS (direction of flow): Right Vertebral: Antegrade Left Vertebral: Antegrade Rhythm: Normal Mild atherosclerotic changes with no significant velocity increases. Velasquez scale images show mild peripheral plaque at right carotid bulb level. Velocity measurements and ratios remain within normal limits bilaterally. IMPRESSION: No hemodynamically significant stenosis in either internal carotid artery. No significan t change from prior. Criteria for Assigning % of Stenosis / Diameter reduction (Estimation based on the indirect measurements of the internal carotid artery velocities (ICA PSV). 1. Normal (no stenosis)=ICA PSV < 125 cm/s: ratio < 2.0: ICA EDV<40 cm/s. 2. Less than 50% stenosis=ICA PSV < 125 cm/s: ratio < 2.0: ICA EDV<40 cm/s. 3. 50 to 69% stenosis=ICA PSV of 125 to 230 cm/s: ration 2.0 ? 4.0: ICA EDV 40-100 cm/s. 4. Greater than 70% stenosis to near occlusion= ICA PSV > 230 cm/s: ratio > 4.0: ICA EDV > 100 cm/s. 5. Near occlusion= ICA PSV velocities may be low or undetectable: variable ratio and ICA EDV. 6. Total occlusion=unable to detect flow.
== END | disposition home or self-care (01) ==
LOC: RADUSWWP 16:47
PROVIDERS: ATTEND Internal Medicine Geriatric Medicine
DX: R42 Dizziness and giddiness (principal)
CPT/HCPCS: 93880

== ENCOUNTER → 2022-01-27 | Outpatient (CLI) | payer MEDICARE ==
--- NOTE | 2022-01-27 16:13 | CT ---
EXAMINATION TYPE: CT ChestAbdPelvis w con DATE OF EXAM: 01/27/2022 COMPARISON: 10/12/2021 HISTORY: f/u lymphoma CT DLP: 1301.1 mGycm Automated exposure control for dose reduction was used. CONTRAST: CT scan of the chest, abdomen and pelvis is performed with Oral Contrast and with IV Contrast, patien t injected with 100 mL of Isovue 300. FINDINGS: CT chest: There few scattered tiny 1 to 2 mm nodules which were seen previously and are stable. No new suspicio us mass or nodule is seen. The lungs are clear consolidative or interstitial density. There is no pleural effusion pleural thickening or pneumothorax. Great vessels the chest are normal and there is no mediastinal, hilar or axillary adenopathy. The osseous structures are intact. CT abdomen and pelvis: There are surgical absence of the gallbladder. There is no focal mass or organomegaly involving the liver, pancreas, spleen or adrenal glands. There is rapid symmetric perfusion of both kidneys and there is no hydronephrosis. Caliber of the abdominal aorta is normal. There is no retroperitoneal adenopathy or hemorrhage. The bowel loops are normal in caliber and there is no evidence of bowel obstruction. There is no free intraperitoneal air or fluid. Ill-defined mass seen within the mesentery of the left mid abdomen is again seen but has decreased in size from 23 mm x 14.5 mm to 19.5 mm x 9.5 mm. Indeterminate whether this represents residual neopla sm or scar. There is prostatic hypertrophy but no pelvic mass, abscess or adenopathy. The osseous structures are intact. IMPRESSION: 1. Continued regression of the small soft tissue density in the mesentery of the left lateral mid abd omen as described above. Residual neoplasm versus mesenteric scar. 2. No evidence of metastatic disease.
== END | disposition home or self-care (01) ==
LOC: RADCTMAIN 13:31
PROVIDERS: ATTEND Internal Medicine Hematology & Oncology
DX: C85.98 Non-Hodgkin lymphoma, unspecified, lymph nodes of multiple sites (principal); N40.0 Benign prostatic hyperplasia without lower urinary tract symptoms
CPT/HCPCS: 82565; 84520; 71260; 74177; 36415; Q9967

== ENCOUNTER → 2022-04-12 | Outpatient (CLI) | payer MEDICARE ==
--- NOTE | 2022-04-13 09:26 | CA ---
Transthoracic Echo Report Name: Chucky Martin Age: 76 Gender: M : 1945 Exam Date: 04/12/2022 14:06 Exam Location: [facility] Ht (in): 68.5 Wt (lb): 180 Ordering Physician: Kendell Colindres MD Attending/Referring Phys: Electrical Cad Technician Poonam Chambers RDCS Procedure CPT: Indications: Z01.818 pre chemo Cardiac Hx: Technical Quality: Good Contrast 1: Total Dose (mL): Contrast 2: Total Dose (mL): MEASUREMENTS (Male / Female) Normal Values 2D ECHO LV Diastolic Diameter PLAX 4.5 cm 4.2 - 5.9 / 3.9 - 5.3 cm LV Systolic Diameter PLAX 3.1 cm IVS Diastolic Thickness 1.0 cm 0.6 - 1.0 / 0.6 - 0.9 cm LVPW Diastolic Thickness 1.0 cm 0.6 - 1.0 / 0.6 - 0.9 cm LV Relative Wall Thickness 0.5 RV Internal Dim ED PLAX 3.3 cm LA Systolic Diameter LX 3.3 cm 3.0 - 4.0 / 2.7 - 3.8 cm LA Volume 39.8 cm??? 18 - 58 / 22 - 52 cm??? M-MODE Aortic Root Diameter MM 3.5 cm MV E Point Septal Separation 0.5 cm AV Cusp Separation MM 1.9 cm DOPPLER AV Peak Velocity 143.1 cm/s AV Peak Gradient 8.2 mmHg MV Area PHT 2.0 cm??? Mitral E Point Velocity 57.1 cm/s Mitral A Point Velocity 65.7 cm/s Mitral E to A Ratio 0.9 MV Deceleration Time 377.9 ms MV E' Velocity 4.8 cm/s Mitral E to MV E' Ratio 11.9 TR Peak Velocity 228.7 cm/s TR Peak Gradient 20.9 mmHg Right Ventricular Systolic Press 25.3 mmHg FINDINGS Left Ventricle Left ventricular ejection fraction is estimated at 55-60 %. Left ventricular cavity size normal. Left ventricular wall thickness normal. Right Ventricle Mild right ventricular dilatation. Right ventricular systolic pressure within normal limits. Right Atrium Normal right atrial size. Left Atrium Normal left atrial size. No evidence for an atrial septal defect. Mitral Valve Structurally normal mitral valve. No mitral stenosis, regurgitation or prolapse. Aortic Valve Trileaflet aortic valve. No aortic valve stenosis or regurgitation. Tricuspid Valve Trace to mild tricuspid regurgitation. Pulmonic Valve Trace to mild pulmonic regurgitation. Pericardium Normal pericardium. No pericardial effusion. Aorta Normal size aortic root and proximal ascending aorta. CONCLUSIONS Normal LV size and systolic function. No significant abnormality on the Doppler exam. No pericardial effusion Previewed by: Dr. Virgil Hallman MD (Electronically Signed) Final Date: 13 April 2022 09:25
== END | disposition home or self-care (01) ==
LOC: RADECHMAIN 14:01
PROVIDERS: ATTEND Internal Medicine Hematology & Oncology
DX: Z01.818 Encounter for other preprocedural examination (principal); I07.1 Rheumatic tricuspid insufficiency
CPT/HCPCS: 93306

== ENCOUNTER → 2022-05-03 | Outpatient (CLI) | payer MEDICARE ==
--- NOTE | 2022-05-03 12:19 | CT ---
EXAMINATION TYPE: CT ChestAbdPelvis wo con CT DLP: 1374 mGycm, Automated exposure control for dose reduction was used. DATE OF EXAM: 05/03/2022 9:36 AM COMPARISON: CT chest abdomen pelvis 01/27/2022. CLINICAL INDICATION:Male, 76 years old with history of C85.98 NON-HODGKIN LYMPHOMA, UNSP, LYMPH NODES ; PHH, follow up to non hodgkins lymphoma Technique: Multiple axial images of the chest, abdomen, and pelvis were obtained without the administ ration of intravenous contrast. This limits evaluation of the viscera. Oral contrast was administered . Two-dimensional coronal and sagittal reconstructions were obtained. Findings: CHEST: LUNGS/ PLEURA: No pneumothorax, pleural effusion, focal consolidation. Stable scattered tiny 1 to 2 m m pulmonary nodules. AIRWAY: Patent and unremarkable.. HEART: Size within normal limits. No pericardial effusion. Coronary arterial calcifications. MEDIASTINUM: No gross evidence of adenopathy. VASCULATURE: No aortic aneurysm. MUSCULOSKELETAL: No acute osseous abnormalities. Multilevel degenerative changes of the visualized sp ine. No aggressive osseous lesions. SOFT TISSUES/LYMPH NODES: Unremarkable. LOWER NECK: No significant findings. ABDOMEN: ABDOMEN LIVER: Unremarkable noncontrast appearance. GALLBLADDER AND BILE DUCTS: Postcholecystectomy. PANCREAS: Unremarkable noncontrast appearance. SPLEEN: Unremarkable noncontrast appearance. ADRENAL GLANDS: Unremarkable noncontrast appearance. KIDNEYS AND URETERS: No hydronephrosis or renal calculi. Nonspecific bilateral perinephric fat strand ing. PELVIS BLADDER: Under distended, limiting evaluation. REPRODUCTIVE: Prostate is enlarged in size measuring 5.3 cm in transverse dimension. Surgical clips d emonstrated within the scrotum. ABDOMEN & PELVIS STOMACH AND BOWEL: Stomach and duodenum are unremarkable. No focal wall thickening or surrounding inf lammatory changes. No evidence of bowel obstruction. PERITONEUM: No evidence of pneumoperitoneum or free fluid. Decreased size of ill-defined mass within the mesentery the left mid abdomen measuring grossly 1.2 x 0.8 cm, previously 2.0 x 1.0 cm. VASCULATURE: Mild atherosclerotic calcifications are present throughout the abdominal aorta and its b ranches. MUSCULOSKELETAL: No acute osseous abnormalities. Multilevel degenerative changes of visualized spine. No aggressive osseous lesions. LYMPH NODES: No retroperitoneal or mesenteric adenopathy. SOFT TISSUE/ABDOMINAL WALL: Tiny fat filled umbilical hernia. Surgical clips seen in the right groin. IMPRESSION: 1. Continued regression of small soft tissue density within the mesentery the left lateral midabdomen . This again may represent residual neoplasm versus mesenteric scar. 2. No evidence of metastatic disease.
== END | disposition home or self-care (01) ==
LOC: RADCTMAIN 07:36
PROVIDERS: ATTEND Internal Medicine Hematology & Oncology
DX: C85.98 Non-Hodgkin lymphoma, unspecified, lymph nodes of multiple sites (principal); R19.00 Intra-abdominal and pelvic swelling, mass and lump, unspecified site
CPT/HCPCS: 71250; 74176

== ENCOUNTER → 2022-10-11 | Outpatient (CLI) | payer MEDICARE ==
--- NOTE | 2022-10-11 18:31 | CT ---
EXAMINATION TYPE: CT ChestAbdPelvis wo con DATE OF EXAM: 10/11/2022 INDICATION: Nonhodgkin lymphoma COMPARISON: 05/03/2022 CT DLP: 731.2 mGycm CONTRAST: Performed with Oral Contrast no intravenous contrast. TECHNIQUE: Axial images at 5 mm thick sections. Reconstructed images in the coronal plane. Delayed images through the kidneys. FINDINGS: CT CHEST: Portion of the thyroid visualized is normal. There is a vague area of pneumonitis in the anterior right midlung. Series 4 image 29. This was prese nt previously. No enlarged mediastinal or hilar adenopathy is evident. No suspicious axillary adenopathy. The ascending aorta diameter at the level of the main pulmonary artery is 3.3 cm. The main pulmonary artery diameter at the bifurcation is 2.0 cm. Moderate coronary artery calcification is present. CT ABDOMEN: Liver: Normal Spleen: Normal. Small splenule is anterior to the spleen. Pancreas: Normal Adrenal glands: The adrenal glands are normal. Gallbladder: Surgically absent. Kidneys: No masses are evident. No hydronephrosis is present. No cysts are present. Delayed images were obtained through the kidneys, which remain unremarkable. Aorta: Vascular calcification is within the aorta. Inferior vena cava: Normal. CT PELVIS: Loops of bowel within the abdomen and pelvis are normal. There are loops of bowel which are incom pletely distended or lack oral contrast limiting their evaluation. Appendix: Normal as visualized. Urinary bladder: Normal. Genitourinary structures: Prostate is prominent Osseous structures: No suspicious lytic or sclerotic lesions. Lymphadenopathy: No enlarged lymphadenopathy is evident. Small lymphadenopathy remains within the mes entery. IMPRESSIONS: 1. No suspicious changes to suggest recurrent lymphoma.
== END | disposition home or self-care (01) ==
LOC: RADCTMAIN 08:39
PROVIDERS: ATTEND Internal Medicine Hematology & Oncology
DX: C85.98 Non-Hodgkin lymphoma, unspecified, lymph nodes of multiple sites (principal); I10 Essential (primary) hypertension; R91.1 Solitary pulmonary nodule; R59.0 Localized enlarged lymph nodes
CPT/HCPCS: 82565; 84520; 71250; 74176; Q9967

== ENCOUNTER → 2023-04-17 | Outpatient (CLI) | payer MEDICARE ==
--- NOTE | 2023-04-17 12:10 | CT ---
EXAMINATION TYPE: CT ChestAbdPelvis wo con CT DLP: 1281.2 mGycm, Automated exposure control for dose reduction was used. DATE OF EXAM: 04/17/2023 11:36 AM COMPARISON: Multiple CT chest abdomen pelvis with most recent 10/11/2022. CLINICAL INDICATION:Male, 77 years old with history of C85.98; PHH, f/u lymphoma Technique: Multiple axial images of the chest, abdomen, and pelvis were obtained without the administ ration of intravenous contrast. This limits evaluation of the viscera. Oral contrast was administered . Two-dimensional coronal and sagittal reconstructions were obtained. Findings: CHEST: LUNGS/ PLEURA: No pneumothorax, pleural effusion, or focal consolidation. Stable scattered tiny 1 to 2 mm pulmonary nodules. No new or enlarging pulmonary nodules. AIRWAY: Patent and unremarkable.. HEART: Size within normal limits. No pericardial effusion. Moderate coronary arterial calcifications. MEDIASTINUM: No evidence of adenopathy. VASCULATURE: No aortic aneurysm. MUSCULOSKELETAL: No acute osseous abnormalities. Multilevel degenerative changes of the visualized sp ine. No aggressive osseous lesions. SOFT TISSUES/LYMPH NODES: Unremarkable. LOWER NECK: No significant findings. ABDOMEN: ABDOMEN LIVER: Unremarkable noncontrast appearance. GALLBLADDER AND BILE DUCTS: Postcholecystectomy. PANCREAS: Unremarkable noncontrast appearance. SPLEEN: Unremarkable noncontrast appearance. ADRENAL GLANDS: Unremarkable noncontrast appearance. KIDNEYS AND URETERS: No hydronephrosis or renal calculi. Nonspecific bilateral perinephric fat strand ing redemonstrated. PELVIS BLADDER: Under distended, limiting evaluation. REPRODUCTIVE: Prostate is enlarged in size measuring 5.3 cm in transverse dimension. Surgical clips d emonstrated within the scrotum. ABDOMEN & PELVIS STOMACH AND BOWEL: Stomach and duodenum are unremarkable. No focal wall thickening or surrounding inf lammatory changes. Enteric contrast reaches the rectum. The appendix is within normal limits. No evid ence of bowel obstruction. PERITONEUM: No evidence of pneumoperitoneum or free fluid. Decreased size of ill-defined nodule withi n the mesentery the left mid abdomen measuring grossly 5 mm, previously 7 mm. No new suspicious nodul arity. VASCULATURE: Mild atherosclerotic calcifications are present throughout the abdominal aorta and its b ranches. MUSCULOSKELETAL: No acute osseous abnormalities. Multilevel degenerative changes of visualized spine. No aggressive osseous lesions. LYMPH NODES: No retroperitoneal or mesenteric adenopathy. SOFT TISSUE/ABDOMINAL WALL: Tiny fat filled umbilical hernia. Surgical clips seen in the right verteb ral region. IMPRESSION: 1. Continued regression of small soft tissue density within the mesentery the left lateral midabdomen now measuring 5 mm, previously 7 mm. No new nodularity/adenopathy. 2. No evidence of metastatic disease.
== END | disposition home or self-care (01) ==
LOC: RADCTMAIN 09:23
PROVIDERS: ATTEND Internal Medicine Hematology & Oncology
DX: C85.98 Non-Hodgkin lymphoma, unspecified, lymph nodes of multiple sites (principal); I10 Essential (primary) hypertension; J98.4 Other disorders of lung; R59.0 Localized enlarged lymph nodes; R91.1 Solitary pulmonary nodule
CPT/HCPCS: 71250; 74176

== ENCOUNTER → 2023-10-12 | Outpatient (CLI) | payer MEDICARE ==
[~2023-10-12] MED LIST changes: -HYDROmorphone 0.5 MG/0.5 ML SYRINGE IVP PRN; +REGADENOSON 0.4 MG/5 ML SYRINGE IV PRN
--- NOTE | 2023-10-12 18:42 | CA ---
Lexiscan Nuclear Stress Test Report Name: Chucky Martin Exam Date: 10/12/2023 10:49 Exam Location: [facility] Ht (in): 69 Wt (lb): 185 BSA: 2.00 Ordering Phys: Blaise Reeves MD Referring Phys: Kendell Colindres MD Technologist: Silvia Christianson Age: 77 Gender: M : 1945 Procedure CPT: Indications: I20.9 ANGINA PECTORIS, UNSPECIFIED ICD-10 Codes: Patient History: Chest pain and shortness of breath Medications: Meds past 24 hrs: Pretest Chest Pain: STRESS TEST Lexiscan Protocol Exercise Duration (min:sec): 01:[address] Depressions (mm): Angina Score: Wei Score: Resting HR (bpm): 59 Peak HR (bpm): 78 Resting BP (mmHg): 174 / 82 Peak BP (mmHg): / 67 MPHR: 143 Target HR: 122 % MPHR: 55 METS: 1.0 Total Dose: Peak Dose: Atropine: Double Product: BP Response: Stress Termination: Infusion complete Stress Symptoms: No chest pain or symptoms Stress Summary: ECG ANALYSIS Resting ECG: Stress ECG: CONCLUSIONS Nonspecific EKG changes in response to Lexiscan Dr. Juan Ramon Jo MD (Electronically Signed) Final Date: 12 October 2023 18:41
--- NOTE | 2023-10-15 08:54 | NM ---
EXAMINATION TYPE: NM stress lexiscan cardiolite DATE OF EXAM: 10/12/2023 COMPARISON: NONE CLINICAL INDICATION: Male, 77 years old with history of I20.9 Angina; TECHNIQUE: After the intravenous administration of 9.14 mCi Tc 99m Sestamibi - Cardiolite resting SP ECT images acquired 63 minutes post injection. The patient received 0.4mg Lexiscan, 24.9 mCi Tc 99m Sestamibi - Stress images obtained [address] injection FINDINGS: Review of stress and rest SPECT images demonstrates no distinct perfusion abnormality. Gated analysi s shows normal wall motion with an estimated left ventricular ejection fraction of 61 %. TID is calc ulated at 1.03, upper limits of normal. IMPRESSION: No scintigraphic evidence for reversible ischemia.
== END | disposition home or self-care (01) ==
LOC: RADNMMAIN 08:33
PROVIDERS: ATTEND Internal Medicine Geriatric Medicine
DX: I20.9 Angina pectoris, unspecified (principal)
CPT/HCPCS: 93017; 78452; A9500; J2785

== ENCOUNTER → 2023-10-25 | Outpatient (CLI) | payer MEDICARE ==
[2023-10-25 13:03] LABS: African American GFR (CKD) 48 (>60 ml/min/1.73 sqM); Blood Urea Nitrogen 25 mg/dL (9-20); Non-African American GFR(CKD) 42 (>60 ml/min/1.73 sqM)
--- NOTE | 2023-10-25 15:01 | CT ---
EXAMINATION TYPE: CT ChestAbdPelvis wo con CT DLP: 745.2 mGycm, Automated exposure control for dose reduction was used. DATE OF EXAM: 10/25/2023 2:12 PM COMPARISON: Multiple CTs most recent 04/17/2023. 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 Two-dimensional coronal and sagittal reconstructions were obtained. Contrast used: mL of , Oral contrast used: with Oral Contrast Findings: CHEST: LUNGS/ PLEURA: The lung parenchyma appears unremarkable. AIRWAY: Patent and unremarkable. HEART: Heart is mildly enlarged for size with coronary artery atherosclerosis. MEDIASTINUM: Periaortic lymph node in the low thorax has increased in size now measuring 10 mm in larry rt axis, previously 5 mm. VASCULATURE: No aortic aneurysm. MUSCULOSKELETAL: No acute osseous abnormalities. SOFT TISSUES/LYMPH NODES: Unremarkable. LOWER NECK: No significant findings. ABDOMEN: ABDOMEN LIVER: Unremarkable GALLBLADDER AND BILE DUCTS: The gallbladder surgically absent. PANCREAS: Unremarkable. SPLEEN: Stable splenule anterior to the spleen. ADRENAL GLANDS: Unremarkable. KIDNEYS AND URETERS: No evidence of hydronephrosis or renal calculus. The ureters are unremarkable. PELVIS BLADDER: Unremarkable REPRODUCTIVE: Prostate is enlarged in size measuring 5.3 cm in transverse dimension. ABDOMEN & PELVIS STOMACH AND BOWEL: No evidence of bowel obstruction. The appendix is normal. PERITONEUM: No evidence of pneumoperitoneum or free fluid. There is soft tissue nodularities in the a nterior abdomen on the left appears to have increased in size now measuring up to 9 mm series 3 image 90 and on the right there is at least 2 areas one measuring up to 11 mm on series 3 image 89 and ano ther measuring 23 x 9 mm on series 3 image 86. Additional smaller lesions are also identified. VASCULATURE: No evidence of aortic aneurysm. MUSCULOSKELETAL: Multilevel degeneration changes throughout spine. LYMPH NODES: No gross evidence for lymphadenopathy. SOFT TISSUE/ABDOMINAL WALL: Fatty inguinal hernias bilaterally. IMPRESSION: Increasing soft tissue densities within the omentum concerning for recurrence. Additional history aor tic lymph node in the lower thorax near the aortic hiatus is increase in size and is concerning for r ecurrence. Further workup is recommended consider pet/CT.
== END | disposition home or self-care (01) ==
LOC: RADCTMAIN 12:15
PROVIDERS: ATTEND Internal Medicine Hematology & Oncology
DX: K66.8 Other specified disorders of peritoneum (principal); C85.98 Non-Hodgkin lymphoma, unspecified, lymph nodes of multiple sites; I10 Essential (primary) hypertension; R59.0 Localized enlarged lymph nodes; R91.1 Solitary pulmonary nodule
CPT/HCPCS: 36415; 71250; 74176; 82565; 84520

== ENCOUNTER → 2023-11-23 | Outpatient (CLI) | payer MEDICARE ==
--- NOTE | 2023-11-25 23:35 | PE ---
EXAMINATION TYPE: PET CT fusion skull to thigh DATE OF EXAM: 11/23/2023 CLINICAL INDICATION:Male, 78 years old with history of C85.98; TECHNIQUE: Following the intravenous administration of 8.69 mCi of F-18 FDG, whole body images are performed from the skull base to the midthigh. Images are reviewed on the computer in the coronal, a xial, and sagittal planes. Reconstructed rotating images are created on independent workstation and reviewed on the computer. A non-contrast CT is performed in conjunction with the PET scan. Glucose level 92 mg/dL CT DLP: 674 mGycm, Automated exposure control for dose reduction was used. COMPARISON: CT 10/25/2023, 04/17/2023 PET/CT 12/24/2020, FINDINGS: Mediastinal SUV mean is 2.5. Hepatic parenchyma SUV mean is 2.8. SKULL BASE AND NECK: No suspicious radiotracer activity. CHEST, MEDIASTINUM, AND HILAR REGION: * periaortic lymph node measuring 5 mm in short axis. Max SUV 3.4 previously not visualized., * Additional periaortic lymph node near the aortic hiatus max SUV 3.8 measuring 18 x 14 mm. Which arroyo s increased soft tissue fullness compared to prior. ABDOMEN AND PELVIS: No suspicious radiotracer activity. * Increased omentum soft tissue anterior abdominal cavity on the right the largest on series 3 image 171 measuring 26 x 11 mm previously not identified on a 04/17/2023 study. Max SUV 10.8. * Another more superior medial nodule Max SUV 5.8 measuring 9 mm series 3 image 154. * Left anterior omentum uptake max SUV 6.0 and wispy soft tissue in the omentum. Series 3 image 171 * Another area measuring 1 medially and inferiorly Max SUV 6.9 Series 3 image 180 measuring 7 mm. * Bilateral inguinal lymph nodes with increased activity on the left axis 3.8 and on the right max S UV 2.6. MUSCULOSKELETAL STRUCTURES: No suspicious radiotracer activity. OTHER CT: Prostatomegaly. Bilateral fatty changes/small fat-containing inguinal hernias. Right inguin al surgical clips. Scattered colonic diverticula. The gallbladder surgically absent. Atherosclerosis of the arterial vasculature. The heart is mild moderately enlarged for size. Coronary artery calcific ations. IMPRESSION: Abnormal uptake within the omentum an in the lymph nodes in the areas of concern on prior CT 10/25/2023 concerning for recurrence/malignancy.
== END | disposition home or self-care (01) ==
LOC: RADPETMAIN 12:20
PROVIDERS: ATTEND Internal Medicine Hematology & Oncology
DX: C85.98 Non-Hodgkin lymphoma, unspecified, lymph nodes of multiple sites (principal); R91.1 Solitary pulmonary nodule
CPT/HCPCS: 78815; A9552

== ENCOUNTER → 2023-12-12 | Outpatient (CLI) | payer MEDICARE | END | disposition home or self-care (01) | LOC: LABWHC1 09:48 | PROVIDERS: ATTEND Internal Medicine Hematology & Oncology | DX: C85.98 Non-Hodgkin lymphoma, unspecified, lymph nodes of multiple sites (principal); I10 Essential (primary) hypertension; R91.1 Solitary pulmonary nodule; R59.0 Localized enlarged lymph nodes | CPT/HCPCS: 93005 ==

== ENCOUNTER → 2023-12-24 | Outpatient (CLI) | payer MEDICARE ==
[2023-12-24 15:53] LABS: African American GFR (CKD) 53 (>60 ml/min/1.73 sqM); Blood Urea Nitrogen 24 mg/dL (9-20); Non-African American GFR(CKD) 45 (>60 ml/min/1.73 sqM)
--- NOTE | 2023-12-24 18:05 | CT ---
EXAMINATION TYPE: CT ChestAbdPelvis w con DATE OF EXAM: 12/24/2023 COMPARISON: 01/27/2022 HISTORY: Enlarged lymphnodes. hx of lymphoma. CT DLP: 1252.3 mGycm Automated exposure control for dose reduction was used. CONTRAST: CT scan of the chest, abdomen and pelvis is performed with Oral Contrast and with IV Contrast, patien t injected with 80cc mL of Isovue 300. FINDINGS: CT chest: There is no suspicious lung mass or nodule. There is no abnormal airspace/consolidative density or abnormal interstitial density. There is no pleural effusion, pleural thickening or pneumothorax. The great vessels and chest are normal there is no mediastinal, hilar or axillary adenopathy. There i s a 15 mm short axis lymph node adjacent to the descending thoracic aorta at the thoracic inlet. Ther e is increased in size in the interval and previously measured 9 mm. No focal osseous lesions are seen. CT abdomen and pelvis: There is surgical absence of the gallbladder. There is no biliary ductal dilatation. There is no focal mass or organomegaly involving the liver, pancreas, spleen or adrenal glands.. There is no solid renal mass or hydronephrosis. There is no retroperitoneal adenopathy or hemorrhage in the caliber of the abdominal aorta is normal. The bowel loops are normal in caliber and there is no dilatation or obstruction. No inflammatory narvaez ges identified in the bowel wall . The ill-defined density in the mesentery within the left lateral m id abdomen has continued to decrease in size and now measures 8 mm. There is increasing ill-defined d ensity in the omentum consistent with omental caking. There is no free intracranial air or fluid. There is no pelvic mass or adenopathy. There is no free fluid within the pelvis. There is moderate pr ostatic hypertrophy. No focal osseous lesions are seen. Soft tissue the abdomen and pelvis are normal. IMPRESSION: 1. Periaortic lymph node at the thoracic inlet which has increased in size in the interval from 9 mm to 15 mm. 2. Development of ill-defined anterior omental densities consistent with omental caking. 3. Decreasing left lateral peritoneal mass. A small residual 8mm nodule persists 4. Findings suggest recurrent lymphomatous disease.
== END | disposition home or self-care (01) ==
LOC: RADCTMAIN 14:44
PROVIDERS: ATTEND Internal Medicine Hematology & Oncology
DX: C85.98 Non-Hodgkin lymphoma, unspecified, lymph nodes of multiple sites (principal)
CPT/HCPCS: 82565; 84520; 71260; 74177; 36415; Q9967

== ENCOUNTER → 2024-01-01 | Outpatient (CLI) | payer MEDICARE ==
--- NOTE | 2024-01-02 08:19 | XR ---
EXAMINATION TYPE: XR Hip Complete RT DATE OF EXAM: 01/01/2024 4:42 PM CLINICAL INDICATION:Male, 78 years old with history of [id number] PAIN IN R HIP; [facility] COMPARISON: None. TECHNIQUE: XR Hip Complete RT; hip was examined in the frontal and lateral projections and a AP pelvi s. FINDINGS: No evidence for acute process, joint dislocation or significant soft tissue swelling. Osteo phyte formation of the superior acetabulum of the hip. Surgical clips project over the inguinal regio n. IMPRESSION: 1. No evidence for acute process. 2. Moderate hip osteoarthrosis.
--- NOTE | 2024-01-02 08:20 | XR ---
EXAMINATION TYPE: XR lumbar spine 2 or 3V DATE OF EXAM: 01/01/2024 4:42 PM CLINICAL INDICATION:Male, 78 years old with history of [id number] SPINAL STENOSIS; [facility] COMPARISON: 11/17/2014 TECHNIQUE: XR lumbar spine 2 or 3V - Frontal, lateral and coned in L5-S1 lateral views of the spine. FINDINGS: No evidence of any acute osseous pathology. No evidence of loss of vertebral body height i s seen. There is normal alignment of the lumbar vertebral bodies. Mild scattered disc space narrowing . Multilevel marginal osteophyte formation throughout the visualized spine. There is facet joint arth ropathy throughout the spine. Neural foraminal stenosis worse at L5-S1 with at least moderate to cassidy re. Atherosclerosis of the arterial vasculature. IMPRESSION: 1. No acute fracture. 2. Moderate multilevel disc degeneration. Findings have progressed from prior.
== END | disposition home or self-care (01) ==
LOC: RADXRMAIN 15:47
PROVIDERS: ATTEND Internal Medicine Geriatric Medicine
DX: M51.36 Other intervertebral disc degeneration, lumbar region (principal); M48.061 Spinal stenosis, lumbar region without neurogenic claudication; M16.11 Unilateral primary osteoarthritis, right hip
CPT/HCPCS: 72100; 73502

== ENCOUNTER → 2024-01-28 | Outpatient (CLI) | payer MEDICARE ==
--- NOTE | 2024-01-28 10:13 | MR ---
EXAMINATION TYPE: MR brain wo/w con DATE OF EXAM: 01/28/2024 7:32 AM COMPARISON: NONE HISTORY: Lymphoma CONTRAST: Patient received 8.5 mL intravenous Gadavist gadolinium contrast. Multiplanar and multispin-echo imaging of the brain was performed . Pre and post contrast enhanced i mages are obtained. The ventricles, basal cisterns and sulci overlying the cerebral convexities are mildly enlarged. There is evidence of [id number] periventricular white matter ischemic demyelination. Remote deep white matter insults are also noted. No acute edema is seen on diffusion weighted imaging. There is no evidence for midline shift or mass effect. Acute intracranial hemorrhage or extra-axial collection is not evident. No enhancing lesions are seen. The paranasal sinuses and mastoid air cells are well-aerated. IMPRESSION: Age-related atrophic and chronic small vessel ischemic change. No acute intracranial process at this time. No enhancing lesions are seen.
== END | disposition home or self-care (01) ==
LOC: RADMRIMAIN 06:32
PROVIDERS: ATTEND Internal Medicine Hematology & Oncology
DX: C85.98 Non-Hodgkin lymphoma, unspecified, lymph nodes of multiple sites (principal); I67.82 Cerebral ischemia; G31.9 Degenerative disease of nervous system, unspecified
CPT/HCPCS: 70553; A9585

== ENCOUNTER → 2024-02-01 | Outpatient (CLI) | payer MEDICARE | END | disposition home or self-care (01) | LOC: LABWHC1 16:17 | PROVIDERS: ATTEND Internal Medicine Hematology & Oncology | DX: C85.98 Non-Hodgkin lymphoma, unspecified, lymph nodes of multiple sites (principal); I10 Essential (primary) hypertension; I49.8 Other specified cardiac arrhythmias; R91.1 Solitary pulmonary nodule; R59.0 Localized enlarged lymph nodes; R00.1 Bradycardia, unspecified | CPT/HCPCS: 36415; 93005 ==

== ENCOUNTER → 2024-02-01 | Outpatient (CLI) | payer MEDICARE ==
--- NOTE | 2024-02-01 18:17 | CA ---
Transthoracic Echo Report Name: Chucky Martin Age: 78 Gender: M : 1945 Exam Date: 02/01/2024 15:42 Exam Location: [facility] Ht (in): 68 Wt (lb): 186 Ordering Physician: Kendell Colindres MD Attending/Referring Phys: Kendell Colindres MD [employer]er Radha Alvares, JERONIMO Procedure CPT: Indications: Z01.818 ENCOUNTER FOR OTHER PREPROCEDURAL EXAMINAT Cardiac Hx: Technical Quality: Fair Contrast 1: Total Dose (mL): Contrast 2: Total Dose (mL): MEASUREMENTS (Male / Female) Normal Values 2D ECHO LV Diastolic Diameter PLAX 4.2 cm 4.2 - 5.9 / 3.9 - 5.3 cm LV Systolic Diameter PLAX 2.2 cm IVS Diastolic Thickness 1.4 cm 0.6 - 1.0 / 0.6 - 0.9 cm LVPW Diastolic Thickness 1.3 cm 0.6 - 1.0 / 0.6 - 0.9 cm LV Relative Wall Thickness 0.6 RV Internal Dim ED PLAX 2.4 cm LVOT Diameter 2.4 cm LA Systolic Diameter LX 2.8 cm 3.0 - 4.0 / 2.7 - 3.8 cm LV Diastolic Volume MOD BP 64.3 cm??? 67 - 155 / 56 - 104 cm??? LV Systolic Volume MOD BP 33.3 cm??? 22 - 58 / 19 - 49 cm??? LV Ejection Fraction MOD BP 48.2 % >= 55 % LV Cardiac Index MOD BP 854.1 cm???/min???m??? LV Diastolic Volume MOD 4C 64.6 cm??? LV Systolic Volume MOD 4C 14.8 cm??? LV Ejection Fraction MOD 4C 77.1 % LV Cardiac Index MOD 4C 1372.7 cm???/min???m??? LV Diastolic Length 4C 7.7 cm LV Systolic Length 4C 2.9 cm LV Diastolic Volume MOD 2C 64.6 cm??? LV Systolic Volume MOD 2C 31.7 cm??? LV Ejection Fraction MOD 2C 50.9 % LV Cardiac Index MOD 2C 905.5 cm???/min???m??? LV Diastolic Length 2C 7.4 cm LV Systolic Length 2C 6.7 cm LA Volume 64.4 cm??? 18 - 58 / 22 - 52 cm??? LA Volume Index 31.7 cm???/m??? 16 - 28 cm???/m??? M-MODE Aortic Root Diameter MM 3.2 cm LA Systolic Diameter MM 3.5 cm LA Ao Ratio MM 1.1 AV Cusp Separation MM 1.7 cm DOPPLER AV Peak Velocity 152.5 cm/s AV Peak Gradient 9.3 mmHg AV Mean Velocity 104.7 cm/s AV Mean Gradient 4.8 mmHg AV Velocity Time Integral 34.8 cm AI Peak Velocity 240.0 cm/s AI Peak Gradient 23.0 mmHg AI Pressure Half Time 1006.7 ms LVOT Peak Velocity 111.9 cm/s LVOT Peak Gradient 5.0 mmHg LVOT Velocity Time Integral 29.0 cm LVOT Stroke Volume 126.3 cm??? LVOT Stroke Volume Index 63.7 ml/m??? LVOT Cardiac Index 3481.2 cm???/min???m??? AV Area Cont Eq vti 3.6 cm??? AV Area Cont Eq pk 3.2 cm??? MV Area PHT 2.5 cm??? Mitral E Point Velocity 74.0 cm/s Mitral A Point Velocity 80.3 cm/s Mitral E to A Ratio 0.9 MV Deceleration Time 304.7 ms TR Peak Velocity 237.2 cm/s TR Peak Gradient 22.5 mmHg Right Atrial Pressure 5.0 mmHg Pulmonary Artery Systolic Pressu 27.5 mmHg Right Ventricular Systolic Press 27.5 mmHg FINDINGS Left Ventricle Left ventricular ejection fraction is estimated at 55-60 %.Mildly increased left ventricular wall thickness. Left ventricular cavity size normal. No obvious regional wall motion abnormalities. Right Ventricle Normal right ventricular size and function. Right ventricular systolic pressure within normal limits. Right Atrium Normal right atrial size. Left Atrium Mildly increased left atrial volume. Mitral Valve Mild to moderate mitral regurgitation.Structurally normal mitral valve. No evidence for mitral valve prolapse. No mitral stenosis.mitral annular calcification. Aortic Valve Trileaflet aortic valve. Aortic valve sclerosis. Mild aortic regurgitation. Tricuspid Valve Structurally normal tricuspid valve. No tricuspid stenosis. Mild tricuspid regurgitation. Pulmonic Valve Structurally normal pulmonic valve. No pulmonic stenosis. Mild pulmonic regurgitation. Pericardium No pericardial effusion. Aorta Aortic annulus normal. Ascending aorta not well visualized. CONCLUSIONS 1. Normal left ventricular size and systolic function 2. Mild to moderate mitral with mild tricuspid regurgitation and no evidence of pulmonary hypertension 3. Mild aortic regurgitation Previewed by: Dr. Rosangela Haskins MD (Electronically Signed) Final Date: 01 Feb 2024 18:16
== END | disposition home or self-care (01) ==
LOC: RADECHMAIN 15:14
PROVIDERS: ATTEND Internal Medicine Hematology & Oncology
DX: Z01.818 Encounter for other preprocedural examination (principal); I34.0 Nonrheumatic mitral (valve) insufficiency; I36.1 Nonrheumatic tricuspid (valve) insufficiency; I35.1 Nonrheumatic aortic (valve) insufficiency
CPT/HCPCS: 93306

== ENCOUNTER → 2024-02-01 | Outpatient (CLI) | payer MEDICARE ==
--- NOTE | 2024-02-01 17:29 | XR ---
EXAMINATION TYPE: XR chest 2V DATE OF EXAM: 02/01/2024 4:56 PM CLINICAL INDICATION:Male, 78 years old with history of R91.1 SOLITARY PULMONARY NODULE; [facility] COMPARISON: Chest radiographs from 09/07/2010 TECHNIQUE: XR chest 2V Frontal and lateral views of the chest. FINDINGS: Lungs/Pleura: There is flattening of the diaphragm with increased lucency of the lungs. No evidence o f pneumothorax, pleural effusion or focal consolidation. Pulmonary vascularity: Unremarkable. Heart/mediastinum: Cardiomediastinal silhouette is unremarkable. Musculoskeletal: No acute osseous pathology. IMPRESSION: 1. No acute cardiopulmonary disease process. 2. COPD changes.
== END | disposition home or self-care (01) ==
LOC: RADXRMAIN 16:33
PROVIDERS: ATTEND Internal Medicine Hematology & Oncology
DX: C85.98 Non-Hodgkin lymphoma, unspecified, lymph nodes of multiple sites (principal); J44.9 Chronic obstructive pulmonary disease, unspecified; R91.1 Solitary pulmonary nodule; R59.0 Localized enlarged lymph nodes; I10 Essential (primary) hypertension
CPT/HCPCS: 71046